=== PATIENT | female | born 2000 | race Caucasian/White ===

== ENCOUNTER 2022-03-20 21:45 | Emergency (ER) | payer SELFPAY ==
[~2022-03-20] VITALS: Ht 154.9 cm; Wt 54.4 kg
[2022-03-20 22:15] VITALS: BP 113/60
[2022-03-20] MEDS ORDERED: ACETAMINOPHEN 325 MG TABLET PO ONE (22:30)
[2022-03-20] MEDS ORDERED: ACETAMINOPHEN 325 MG TABLET ONE (22:38)
== END 2022-03-20 22:47 | disposition home or self-care (01) ==
LOC: ER 21:52
DX: Z76.0 Encounter for issue of repeat prescription (principal)